=== PATIENT | female | born 1970 | race Caucasian/White ===

== ENCOUNTER 2018-12-07 19:54 | Emergency (ER) | payer OTHER ==
[~2018-12-07] VITALS: Ht 162.6 cm; Wt 81.2 kg
[2018-12-07 19:59] VITALS: BP_SYST 141
--- NOTE | 2018-12-07 20:00 | NUR ---
TO BED # 06 AMBULATORY
--- NOTE | 2018-12-07 20:15 | NUR ---
PT BIB SELF C/O ABD. PT STATES ABD PAIN W/ N/V/D, STATES 10/10 INTERMITTENT CRAMPING ABD PAIN X1 WEEK; PT STATES NUMBER EPISODES OF V/D UNKNOWN. +APPETITE CHANGES, DIFFUSED PAIN W/ PALPATION TO UPPER ABD; ACTIVE BOWEL SOUNDS THROUGH OUT. NO SIGNS OF VOMITING AT THIS TIME. PT ACTING APPROPRIATLY, SPEAKING IN CLEAR AND COMPLETE SENTENCES. BREATHING EQUAL AND UNLABORED. PT POSITIONED FOR COMFORT, SAFETY PRECUATIONS IMPLEMENTED; BEDRAILS UP X1. PENDING ERMD EVAL. WILL CONTINUE TO MONITOR. PMH: HTN, PRE-DM Addendum: 12/07/18 at 2023 by [email or web address] PT BIB SELF C/O ABD. PT STATES ABD PAIN W/ N/V/D, STATES 10/10 INTERMITTENT CRAMPING ABD PAIN X1 WEEK; PT STATES NUMBER EPISODES OF V/D UNKNOWN. +APPETITE CHANGES, DIFFUSED PAIN W/ PALPATION TO UPPER ABD; ACTIVE BOWEL SOUNDS THROUGH OUT. NO SIGNS OF VOMITING AT THIS TIME. PT ACTING APPROPRIATLY, SPEAKING IN CLEAR AND COMPLETE SENTENCES. BREATHING EQUAL AND UNLABORED. PT POSITIONED FOR COMFORT, SAFETY PRECUATIONS IMPLEMENTED; BEDRAILS UP X1. PENDING ERMD EVAL. WILL CONTINUE TO MONITOR. PMH: HTN, PRE-DM SX: X3, CHOLSESECTOMY
--- NOTE | 2018-12-07 20:47 | NUR ---
Patient being evaluated by Dr. Raymond at bedside.
[2018-12-07] MEDS ORDERED: PANTOPRAZOLE 40 MG INJ VIAL IVP ONE (22:00)
[2018-12-07 22:24] LABS: BASOPHILS % (AUTO) 0.4 % (0.0-2.0); EOSINOPHILS # (AUTO) 0.7 K/uL (0-0.4); EOSINOPHILS % (AUTO) 5.7 % (0.0-4.0); HEMATOCRIT 32.1 % (36-48); HEMOGLOBIN 9.8 g/dL (12.0-16.0); LYMPHOCYTES # (AUTO) 1.4 K/uL (2.5-16.5); LYMPHOCYTES % (AUTO) 11.3 % (20.5-51.1); MEAN CORPUSCULAR HEMOGLOBIN 21 pg (27-31); MEAN CORPUSCULAR HGB CONC 31 g/dL (33-37); MEAN CORPUSCULAR VOLUME 69.2 fL (80-94); MONOCYTES # (AUTO) 0.9 K/uL (0.8-1.0); MONOCYTES % (AUTO) 7.3 % (1.7-9.3); NEUTROPHILS # (AUTO) 9.3 K/uL (1.8-7.7); NEUTROPHILS % (AUTO) 75.3 % (42.2-75.2); PLATELET COUNT (AUTO) 320 K/uL (140-450); RED BLOOD CELL COUNT(AUTO) 4.63 MIL/uL (4.20-5.40); RED CELL DISTRIBUTION WIDTH 18.2 % (11.6-13.7); WHITE BLOOD COUNT (AUTO) 12.4 K/uL (4.8-10.8)
[2018-12-07 22:28] LABS: APPEARANCE,URINE CLOUDY (CLEAR); BILIRUBIN,URINE NEGATIVE (NEGATIVE); BLOOD, URINE NEGATIVE (NEGATIVE); COLOR,URINE YELLOW (YELLOW); LEUKOCYTE ESTERASE ,URINE NEGATIVE (NEGATIVE); NITRITE, URINE NEGATIVE (NEGATIVE); PH,URINE 5.5 (5.0-9.0); UGLUCOSE NEGATIVE (NEGATIVE)
[2018-12-07 22:32] LABS: ANION GAP 10.4 (8-16); CARBON DIOXIDE 26.5 mmol/L (21-32); CREATININE 0.5 mg/dL (0.6-1.3); POTASSIUM 3.9 mmol/L (3.5-5.1)
[2018-12-07 22:38] LABS: ALBUMIN 3.3 g/dL (3.4-5.0); TOTAL BILIRUBIN 0.6 mg/dL (0.0-1.0)
[2018-12-08 00:32] VITALS: BP 121/75
--- NOTE | 2018-12-08 00:32 | NUR ---
Patient discharged with v/s stable. Written and verbal after care instructions given and explained. Patient alert, oriented and verbalized understanding of instructions. Ambulatory with steady gait. All questions addressed prior to discharge. ID band removed. Patient advised to follow up with PMD. Rx of Bentyl 20mg given. Patient educated on indication of medication including possible reaction and side effects. Opportunity to ask questions provided and answered.
--- NOTE | 2018-12-08 00:32 | NUR ---
IV removed, catheter intact and site benign. Applied folded 4x4 gauze and tape to stop bleeding.
== END 2018-12-08 00:32 | disposition home or self-care (01) ==
LOC: MED 19:54
DX: K52.9 Noninfective gastroenteritis and colitis, unspecified (principal); R30.9 Painful micturition, unspecified; I10 Essential (primary) hypertension; Z90.49 Acquired absence of other specified parts of digestive tract; Z98.890 Other specified postprocedural states
CPT/HCPCS: 36415; 80053; 81003; 81025; 82150; 83690; 85025; 96374; 99283; C9113

== ENCOUNTER 2019-07-27 22:31 | Emergency (ER) | payer OTHER ==
[~2019-07-27] VITALS: Ht 162.6 cm; Wt 78.9 kg
[2019-07-27 22:35] VITALS: BP_SYST 160
--- NOTE | 2019-07-27 22:38 | NUR ---
TO LOBBY A/W BED AMBULATORY
--- NOTE | 2019-07-28 01:51 | NUR ---
PT AMBULATED TO ER BED 01
[2019-07-28] MEDS ORDERED: LORazepam 1 MG TAB PO ONE (02:00)
[2019-07-28 02:08] VITALS: BP 124/68
--- NOTE | 2019-07-28 02:11 | NUR ---
48 Y/O FEMALE PRESENTS WITH ANXIETY S/P ANXIETY ATTACK ON 07/27/2019. PT REPORTS SHE HAS BEEN UNDER ALOT OF STRESS AFTER HER SON WAS IN THE ER ON TUESDAY. DENIES ANY SOB/ CHEST PAIN CURRENTY. RESP EVEN AND UNLABORED. LUNG SOUNDS CLEAR IN BILAT LOBES. BOWEL SOUNDS NORMO ACTIVE IN ALL QUADRANTS. AAOX4. CAP REFILL <3 PMH: HTN NKA
[2019-07-28 02:55] LABS: BASOPHILS % (AUTO) 0.3 % (0.0-2.0); EOSINOPHILS % (AUTO) 11.8 % (0.0-4.0); HEMATOCRIT 34.5 % (36-48); HEMOGLOBIN 10.8 g/dL (12.0-16.0); LYMPHOCYTES # (AUTO) 1.7 K/uL (2.5-16.5); LYMPHOCYTES % (AUTO) 19.8 % (20.5-51.1); MEAN CORPUSCULAR HEMOGLOBIN 23 pg (27-31); MEAN CORPUSCULAR HGB CONC 31 g/dL (33-37); MONOCYTES # (AUTO) 0.6 K/uL (0.8-1.0); MONOCYTES % (AUTO) 7.3 % (1.7-9.3); NEUTROPHILS # (AUTO) 5.2 K/uL (1.8-7.7); NEUTROPHILS % (AUTO) 60.8 % (42.2-75.2); PLATELET COUNT (AUTO) 317 K/uL (140-450); RED BLOOD CELL COUNT(AUTO) 4.66 MIL/uL (4.20-5.40); WHITE BLOOD COUNT (AUTO) 8.6 K/uL (4.8-10.8)
[2019-07-28 03:13] LABS: CARBON DIOXIDE 27.4 mmol/L (21-32); CREATININE 0.4 mg/dL (0.6-1.3); POTASSIUM 3.4 mmol/L (3.5-5.1)
== END 2019-07-28 03:59 | disposition home or self-care (01) ==
LOC: MED 22:31
DX: F41.9 Anxiety disorder, unspecified (principal); R07.9 Chest pain, unspecified; E11.9 Type 2 diabetes mellitus without complications; I10 Essential (primary) hypertension; Z98.890 Other specified postprocedural states
CPT/HCPCS: 36415; 71045; 80048; 84484; 85025; 93005; 99285; Q0092